=== PATIENT | male | born 1965 | race Caucasian/White ===

== ENCOUNTER → 2023-11-17 | Day surgery (SDC) | payer BC, OTHER ==
[~2023-11-17] MED LIST: PROPOFOL 10 MG/ML 20 ML VIAL IV ONE
[2023-11-17] MEDS: LACTATED RINGERS 1,000 ML IV SCH (11:25)
[2023-11-17 11:29] VITALS: TEMP 98.9
--- NOTE | 2023-11-17 12:24 | P.PCN ---
Date of Procedure: 11/17/23 Procedure(s) Performed: BRIEF HISTORY: Patient is a 58-year-old pleasant White male scheduled for an elective colonoscopy as a part of Screening for colon cancer. PROCEDURE PERFORMED: Colonoscopy With snare Polypectomy PREOPERATIVE DIAGNOSIS: Screening for colon cancer IV sedation per Anesthesia. PROCEDURE: After informed consent was obtained, the patient, was brought into the endoscopy unit. IV sedation was administered by Anesthesia under continuous monitoring. Digital rectal examination was normal. Initially the Olympus CF-160 flexible video colonoscope was then inserted in the rectum, gradually advanced into the cecum without any difficulty. Careful examination was performed as the scope was gradually being withdrawn. Ileocecal valve and the appendiceal orifice were visualized and appeared normal. Prep was excellent. Mucosa of the cecum appeared normal. In the ascending colon there was a 1.2 cm broad-based polyp removed by snare polypectomy. In the descending colon there was a 5 mm polyp that was removed by cold snare polypectomy. Rest of the ascending colon, transverse colon, descending colon, sigmoid colon, and rectum appeared normal. The proximal rectum there was a 1 cm polyp removed by snare polypectomy. Scattered sigmoid diverticulosis seen.Retroflexion was performed in the rectum and no lesions were seen. The patient tolerated the procedure well. IMPRESSION: 1.2 cm ascending colon polyp status post polypectomy 1 cm proximal rectal polyp status post polypectomy 5 mm descending colon polyp status post polypectomy Scattered similar diverticulosis RECOMMENDATIONS: Findings of this examination were discussed with the patient as well as his family. He was advised to follow with the biopsy results. If the biopsy doesn't adenoma he can have a repeat colonoscopy in 3 years..
[2023-11-17 12:55] VITALS: BP 154/85; PULSE 81; RESP 12
== END ==
LOC: ORWHC2ENDO 10:47
PROVIDERS: ATTEND Internal Medicine Gastroenterology
DX: Z12.11 Encounter for screening for malignant neoplasm of colon (principal); K57.30 Diverticulosis of large intestine without perforation or abscess without bleeding; D12.2 Benign neoplasm of ascending colon; K62.1 Rectal polyp; I10 Essential (primary) hypertension; M19.90 Unspecified osteoarthritis, unspecified site; E78.5 Hyperlipidemia, unspecified; K21.9 Gastro-esophageal reflux disease without esophagitis; Z87.891 Personal history of nicotine dependence; Z79.899 Other long term (current) drug therapy
CPT/HCPCS: 88305; 45380; J2704

== ENCOUNTER → 2023-12-20 | Outpatient (CLI) | payer BC ==
--- NOTE | 2023-12-21 00:34 | XR ---
EXAMINATION TYPE: XR shoulder complete RT DATE OF EXAM: 12/20/2023 COMPARISON: NONE HISTORY: Pain TECHNIQUE: Right Shoulder examined in 3 projections. FINDINGS: The humeral head articulates with the glenoid. The acromio-clavicular junction is normal. No acute fractures or dislocations are evident. A follow up study can be performed 7-10 days from acute trauma for continued pain. MRI can be perfor med if soft tissue evaluation would be of benefit. IMPRESSION: 1. No acute osseous right shoulder abnormality.
--- NOTE | 2023-12-21 17:50 | XR ---
EXAMINATION TYPE: XR cervical spine comp DATE OF EXAM: 12/20/2023 COMPARISON: None HISTORY: Severe shoulder pain TECHNIQUE: 5 views cervical spine FINDINGS: Prevertebral space is normal. There is an anterior cervical fusion at C5 C7. There is loss of disc space through the 6 fusion levels. Posterior spinal lamellar line is intact. Remaining disc s paces preserved. Mild foraminal narrowing is present at left C3-4 C4-5. Odontoid is somewhat limited due to overlying maxilla. Swimmer's view is obtained. IMPRESSION: 1. Left foraminal narrowing at C3-4 C4-5. Correlate with radicular symptoms.
== END | disposition home or self-care (01) ==
LOC: RADXRMAIN 10:45
PROVIDERS: ATTEND Internal Medicine Geriatric Medicine
DX: M25.511 Pain in right shoulder (principal); M54.2 Cervicalgia
CPT/HCPCS: 72050

== ENCOUNTER → 2024-01-02 | Outpatient (CLI) | payer BC ==
--- NOTE | 2024-01-03 18:21 | MR ---
EXAMINATION TYPE: MR cervical spine wo/w con DATE OF EXAM: 01/02/2024 3:45 PM CLINICAL INDICATION:Male, 58 years old with history of M54.2 CERVICALGIA, Sore neck, headaches, finge rs and thumb numbness. COMPARISON: None. TECHNIQUE: Multi planar, multi sequence imaging was performed utilizing: T1-weighted, T2-weighted, an d turbo inversion recovery imaging of the cervical spine. IV Contrast: 10 cc Gadavist (none if empty) FINDINGS: Alignment: The cervical vertebral bodies have preserved heights. Alignment is within normal limits gi vicente patient positioning. Bones: Fixation hardware C5 C6 C7. There is bony fusion at C5-6 and C6-C7 vertebral bodies. Mild mult ilevel degeneration changes with osteophyte formation disc space narrowing facet joint arthropathy.. Cord: The spinal cord is unremarkable with regards to their signal intensity and morphology. Discs: Intervertebral disc signal is maintained. C2-C3: No significant disc pathology. The spinal canal is patent. No neural foraminal stenosis. C3-C4: No significant disc pathology. The spinal canal is patent. Bilateral facet and uncovertebral joint arthropathy are present with moderate left and mild right neural foraminal stenosis. C4-C5: A disc osteophyte complex is present with mild spinal canal stenosis. Bilateral facet and unc overtebral joint arthropathy are present with severe left and moderate neural foraminal stenosis. C5-C6: No significant disc pathology. The spinal canal is patent. No neural foraminal stenosis. C6-C7: No significant disc pathology. The spinal canal is patent. Bilateral facet and uncovertebral joint arthropathy are present with mild bilateral neural foraminal stenosis. C7-T1: No significant disc pathology. The spinal canal is patent. No neural foraminal stenosis. Other: None. IMPRESSION: 1. No evidence for disc herniation or significant spinal canal stenosis. 2. Mild to moderate disc degeneration with associated osteoarthritic changes. Neural femoral stenosis worse with severe left and moderate right C4-C5 and moderate left C3-C4 neural foraminal stenosis.
== END | disposition home or self-care (01) ==
LOC: RADMRIMAIN 14:34
PROVIDERS: ATTEND Internal Medicine Geriatric Medicine
DX: M47.812 Spondylosis without myelopathy or radiculopathy, cervical region (principal); M50.30 Other cervical disc degeneration, unspecified cervical region; M99.71 Connective tissue and disc stenosis of intervertebral foramina of cervical region; R20.0 Anesthesia of skin; R51.9 Headache, unspecified
CPT/HCPCS: 72156; A9585